=== PATIENT | female | born 1995 | race Caucasian/White ===

== ENCOUNTER 2024-01-04 11:00 | Inpatient (IN) | payer SELFPAY ==
[2024-01-04] VITALS (19 sets, daily range): BP systolic 107–131; BP diastolic 54–83; PULSE 64–110; RESP 15–18; TEMP 36.4–37.6; O2SAT 97–100; BMI 29.2
[2024-01-04] MEDS: LACTATED RINGERS 500 ML 999 ML IV ×2 (11:35→16:40)
[2024-01-04] MEDS: Lactated Ringers 1,000 ML 50 ML IV (11:35)
[2024-01-04 11:55] LABS: Absolute Neutrophil Count 9.2 X10^3/uL (2.0-7.7); Basophil# 0.05 X10^3/uL; Basophil% 0.4 % (0-1); Eosinophil# 0.02 X10^3/uL; Eosinophils% 0.2 % (0-5); Hematocrit 42.5 % (37-47); Hemoglobin 14.4 g/dL (12.0-15.0); Lymphocyte % 12.4 % (19-41); Mean Corp Hgb Conc 33.9 g/dL (32-36); Mean Corpuscular Hgb 30.7 pg (27.0-32.0); Mean Corpuscular Volume 90.6 fL (81-99); Mean Platelet Vol. 11.7 fl (6.2-12.0); Monocyte# 0.57 X10^3/uL; Monocyte% 5.1 % (0-10); NRBC Flagged by Analyzer 0 % (0-5); Neutrophil # 9.15 X10^3/uL (2.7-7.7); Neutrophil % 81.4 % (47-70); Platelet Count 158 K/mm3 (150-450); RBC Distribution Width CV 12.2 % (11.6-14.6); RBC Distribution Width SD 40.4 fl (35.1-43.9); Red Blood Count 4.69 M/mm3 (4.2-5.4); White Blood Count 11.3 K/mm3 (4.4-11.0)
[2024-01-04 12:30] LABS: Syphilis Antibodies Non-reactive
--- NOTE | 2024-01-04 12:34 | HP.PCM.OB_ITS ---
HPI - General General Date of Admission: 01/04/24 HPI Narrative JIM YIN, is a 28 F who presents at 40w4d in active labor. Present to office for visit and 5cm dilated with regular contractions. Maternal Data Information HA Calculator Estimated Delivery Date Method Current WG Current Estimate 12/31/23 Manual 40w 4d PFSH PFSH Home Medications ?Medication ?Instructions ?Recorded ?Last Taken ?Type famotidine 20 mg tablet (Acid 20 mg PO BID heartburn 01/04/24 01/03/24 22:00 History Controller) vits,calcium no.78-iron 1 tab PO DAILY 01/04/24 01/03/24 22:00 History fumarate-folic acid 29 mg-1 mg tablet (Prenatabs FA) Allergy/AdvReac Type Severity Reaction Status Date / Time No Known Allergies Allergy Verified 01/04/24 10:57 Social History Smoking Status: Never smoker History Elective abortions Hx Para 0 Spontaneous abortions Hx # Term Pregnancies Ectopic pregnancies Hx # Pregnancies Multiple births # of living children NST FHR Rate Baby A Baseline: 135 Variability:: Moderate Accelerations:: 15 x 15 Decelerations:: Late and Variable FHR Category:: Category II Uterine Activity:: Every 2-4 minutes, strong ROS Constitutional Constitutional: Reports systems reviewed and no addt'l complaints, except as documented; Denies headache(s) Eyes Eyes: Denies acute decrease in peripheral vision, blurry vision or change in vision ENT HEENT: Reports systems reviewed and no addt'l complaints, except as documented Cardiovascular Cardiovascular: Denies chest pain or dizziness Respiratory/Chest Respiratory/Chest: Denies cough, dyspnea, dyspnea on exertion, shortness of breath at rest or shortness of breath with exertion Gastrointestinal Gastrointestinal: Denies abdominal pain, diarrhea, nausea or vomiting Genitourinary Genitourinary: Denies abdominal discomfort Musculoskeletal Musculoskeletal: Denies limited range of motion Integumentary Integumentary: Reports systems reviewed and no addt'l complaints, except as documented Neurologic Neurologic: Reports systems reviewed and no addt'l complaints, except as documented Psychiatric Psychiatric: Reports systems reviewed and no addt'l complaints, except as documented Endocrine Endocrinology: Reports systems reviewed and no addt'l complaints, except as documented Hematologic/Lymphatic Hematologic/Lymphatic: Reports systems reviewed and no addt'l complaints, except as documented Allergic/Immunologic Allergic/Immunologic: Reports systems reviewed and no addt'l complaints, except as documented Vital Signs Vital Signs Vital Signs: 01/04/24 10:55 01/04/24 10:55 Pulse Rate 86 Blood Pressure 110/77 BP Systolic 110 BP Diastolic 77 Weight Weight: 170 lb Body Mass Index (BMI) 29.2 Physical Exam Const alert and oriented x3 General Appearance: cooperative Orientation / Consciousness: awake, oriented to person, oriented to place and oriented to time Exam Limitations: no limitations HEENT normocephalic Head and Scalp: normal to inspection, normocephalic and atraumatic Face and Sinus: normal facial exam Eyes General Eye: normal appearance of both eyes Neck full ROM Chest Chest: symmetrical chest wall rise Resp normal respiratory effort and normal air movement Auscultation: clear to auscultation bilaterally Cardio regular rate, regular rhythm, S1 normal heart sound, S2 normal heart sound, no murmurs, no rub, no gallops and no clicks GI normal to inspection, nondistended, normoactive bowel sounds and non-tender appearance of the vagina normal Narrative: 6/80%/-2, BBOW Bladder / Kidney Exam: no CVA tenderness Back/Spine normal ROM Extremity normal to inspection and full ROM Skin no rashes or lesions noted Neuro oriented x3, CN's II-XII intact bilaterally and moves all extremities Sensorium / Orientation: awake, alert and oriented to person Motor Exam: clonus absent Deep Tendon Reflexes: Rt Patellar (L4): 2+ and Lt Patellar (L4): 2+ Labs Labs Labs: Blood Type B POSITIVE Antibody Screen NEGATIVE Hct 42.5 % (37-47) Hgb 14.4 g/dL (12.0-15.0) Syphilis Total Ab Non-reactive RPR negative HIV negative HepC negative HBsAG negative GBS negative B positive Rubella immune GC/CT negative Assessment & Plan (1) 40 weeks gestation of : (2) Active labor at term: PLAN: Plan 1) Admit to labor and delivery 2) Routine labs 3) Continuous EFM 4) Pain management upon request 5) Augmentation if needed, will await for heart tracing to improve with resuscitative measures. 6) [facility] physician and notified of patient status, above assessment and plan of care.
[2024-01-04] MEDS: Ondansetron 4 MG/2 ML Vial IV (16:19)
--- NOTE | 2024-01-04 17:34 | PN.OBGYN_ITS ---
Subjective Subjective Coping well in bed with Nitrous. at bedside Objective Data Objective Data Vital Signs: Vital Signs Temp Pulse Resp BP Pulse Ox 98.1 F 80 16 131/75 H 100 01/04/24 17:02 01/04/24 17:01 01/04/24 17:02 01/04/24 17:01 01/04/24 17:02 Weight: 170 lb Body Mass Index (BMI) 29.2 Intake & Output: Intake and Output for Last 24 Hours 01/02/24 01/03/24 01/04/24 23:59 23:59 23:59 Intake Total 1237.5 / 1237.5 Balance 1237.5 / 1237.5 Lab / Micro Data 01/04/24 11:35 Labs: Laboratory Results - last 24 hr 01/04/24 11:35: WBC 11.3 H, RBC 4.69, Hgb 14.4, Hct 42.5, MCV 90.6, MCH 30.7, MCHC 33.9, RDW Std Deviation 40.4, RDW Coeff of [place] 12.2, Plt Count 158, MPV 11.7, Immature Gran % (Auto) 0.500, Neut % (Auto) 81.4 H, Lymph % (Auto) 12.4 L, [place] % (Auto) 5.1, Eos % (Auto) 0.2, Baso % (Auto) 0.4, Absolute Neuts (auto) 9.2 H, Absolute Lymphs (auto) 1.40, Nucleated RBC % 0, Syphilis Total Ab Non- reactive, Blood Type B POSITIVE, Antibody Screen NEGATIVE Physical Exam Narrative: complete dilation, +1. AROM clear fluid NST FHR Rate Baby A Baseline: 120 Variability:: Moderate Accelerations:: 15 x 15 Decelerations:: Late and Variable FHR Category:: Category II Uterine Activity:: Every 2 minutes, Strong Assessment & Plan (1) Active labor at term: (2) 40 weeks gestation of : PLAN: Plan 1) Nitrous for pain management 2) Start pushing efforts 3) Resuscitative measures for Category 2 FHT 4) [facility] physician and notified of patient status
[2024-01-04] MEDS: Oxytocin 15 Units/NS 250ml 15 UNITS/250 ML IV.SOLN 334 UNITS IV (18:36)
[2024-01-04] MEDS: Oxytocin 15 Units/NS 250ml 15 UNITS/250 ML IV.SOLN 83 UNITS IV (19:10)
--- NOTE | 2024-01-04 19:44 | EX.PCM.OBRPT ---
Maternal Data Information HA Calculator Estimated Delivery Date Method Current WG Current Estimate 12/31/23 Manual 40w 4d Vaginal Delivery Maternal Presentation Maternal Presentation: Active Labor Operative Information Date of Procedure: 01/04/24 Pre-Operative Diagnosis: Active Labor at term Post-Operative Diagnosis: , first degree perineal laceration Surgery / Procedure Performed: Spontaneous Vaginal Delivery Type of Anesthesia: None Estimated Blood Loss: 200ml Time of Delivery: 18:32 Findings Description of Procedure: Progressed to complete with urge to push. Unmedicated. of viable female over 1st degree perineal laceration. APGARS 8,9 respectively. Infant head delivered with body immediately forthcoming. Placed on maternal abdomen, strong cry. Mouth and nares suctioned for secretions. Pitocin started for active 3rd stage management. Cord doubly clamped and cut by FOB after pulsations ceased, delayed cord clamping. Placenta delivered intact via ríos, 3 vessel cord intact. Perineum inspected and revealed 1st degree perineal laceration. Repaired with 3.0 vicryl rapide and consented to no lidocaine. Fundus firm and hemostasis achieved. EBL 200ml. Mom and baby stable, planning to breastfeed. Family bonding well. notified of delivery. Presentation: Vertex and CARMELINA Amniotic Membrane Rupture Type: Artificial Amniotic Fluid Description: Clear Placental Delivery Description: Spontaneous Placenta Disposition: [facility] Cord Vessel Description: 3 Vessels Cord Entanglement: None Infant A Gender: Female (1 minute): 8 (5 minute): 9 Delayed Cord Clamping: Yes Post Vaginal Delivery Medications Given After Delivery: IV Pitocin Episiotomy Description: None Laceration: Perineal Extension/lac and 1st degree Complication Complications: None
[2024-01-05] VITALS (10 sets, daily range): BP systolic 101–114; BP diastolic 55–68; PULSE 71–92; RESP 16; TEMP 36.3–36.7; O2SAT 97–98
--- NOTE | 2024-01-05 09:00 | PN.OBGYN_ITS ---
Subjective Subjective Doing well. No complaints. Lochia mild. Pain managed. Objective Data Objective Data Vital Signs: Vital Signs Temp Pulse Resp BP Pulse Ox O2 Del Method 97.6 F L 92 16 101/55 L 100 Room Air 01/05/24 05:29 01/05/24 05:29 01/05/24 05:29 01/05/24 05:29 01/04/24 17:02 01/05/24 05:29 Oxygen Delivery Method Room Air Weight: 77.111 kg Body Mass Index (BMI) 29.2 Intake & Output: Intake and Output for Last 24 Hours 01/03/24 01/04/24 01/05/24 23:59 23:59 23:59 Intake Total 2130.10 / 2129.10 Output Total 200 / 200 600 / 600 Balance 1930. / 1929.10 -600 / -600 Lab / Micro Data 01/04/24 11:35 Labs: Laboratory Results - last 24 hr 01/04/24 11:35: WBC 11.3 H, RBC 4.69, Hgb 14.4, Hct 42.5, MCV 90.6, MCH 30.7, MCHC 33.9, RDW Std Deviation 40.4, RDW Coeff of [place] 12.2, Plt Count 158, MPV 11.7, Immature Gran % (Auto) 0.500, Neut % (Auto) 81.4 H, Lymph % (Auto) 12.4 L, [place] % (Auto) 5.1, Eos % (Auto) 0.2, Baso % (Auto) 0.4, Absolute Neuts (auto) 9.2 H, Absolute Lymphs (auto) 1.40, Nucleated RBC % 0, Syphilis Total Ab Non- reactive, Blood Type B POSITIVE, Antibody Screen NEGATIVE ROS Constitutional Constitutional: Denies fatigue, fever(s) or malaise Eyes Eyes: Denies change in vision ENT HEENT: Denies dizziness or headache(s) Cardiovascular Cardiovascular: Denies chest pain, dyspnea or lightheadedness Respiratory/Chest Respiratory/Chest: Denies cough or dyspnea Gastrointestinal Gastrointestinal: Denies change in bowel habits Genitourinary Genitourinary: Denies burning urination or genital lesions Integumentary Integumentary: Denies rash Neurologic Neurologic: Denies confusion, dizziness, headache(s), numbness or weakness Physical Exam Const alert and no apparent distress Narrative: Fundus firm, below umbilicus. Assessment & Plan (1) (spontaneous vaginal delivery): (2) Lactating mother: PLAN: Plan Routine care. Expect discharge tomorrow
[2024-01-06 03:20] VITALS: BP 112/67; PULSE 78; PULSE 82; O2SAT 97
[2024-01-06 03:33] VITALS: BP 112/67; PULSE 81; RESP 16; TEMP 36.6; O2SAT 97
--- NOTE | 2024-01-06 06:28 | PCM.PN.OB ---
Subjective Subjective Doing well. Pain managed. Light lochia. Breast feeding. Cluster feeding last night. Objective Data Objective Data Vital Signs: Vital Signs Temp Pulse Resp BP Pulse Ox O2 Del Method 97.9 F 81 16 112/67 97 Room Air 01/06/24 03:33 01/06/24 03:33 01/06/24 03:33 01/06/24 03:33 01/06/24 03:33 01/06/24 03:33 Oxygen Delivery Method Room Air Weight: 77.111 kg Body Mass Index (BMI) 29.2 Intake & Output: Intake and Output for Last 24 Hours 01/04/24 01/05/24 01/06/24 23:59 23:59 23:59 Intake Total 2129.2129. Output Total 200 / 200 600 / 600 Balance 1929.10 -600 / -600 Lab / Micro Data 01/04/24 11:35 ROS Constitutional Constitutional: Denies fatigue, fever(s) or malaise Eyes Eyes: Denies change in vision ENT HEENT: Denies dizziness or headache(s) Cardiovascular Cardiovascular: Denies chest pain, dyspnea or lightheadedness Respiratory/Chest Respiratory/Chest: Denies cough or dyspnea Gastrointestinal Gastrointestinal: Denies change in bowel habits Genitourinary Genitourinary: Denies burning urination or genital lesions Integumentary Integumentary: Denies rash Neurologic Neurologic: Denies confusion, dizziness, headache(s), numbness or weakness Physical Exam Const alert and no apparent distress Narrative: Fundus firm, below umbilicus. Assessment & Plan (1) (spontaneous vaginal delivery): (2) Lactating mother: PLAN: Plan Routine care. Discharge today
--- NOTE | 2024-01-06 06:32 | PCM.DC.SUM ---
Providers Date of Admission: 01/04/24 Date of Discharge: 01/06/24 Primary Care Physician: Mariluz Primary Care Phys Reason For Visit: LABOR AND DELIVERY Diagnosis Discharge Diagnosis (1) (spontaneous vaginal delivery): Status: Acute Code(s): O80 - Encounter for full-term uncomplicated delivery (2) Lactating mother: Status: Acute Code(s): Z39.1 - Encounter for care and examination of lactating mother Plan Routine care. Discharge today Medications at Discharge Home Medications famotidine 20 mg tablet (Acid Controller) 20 mg PO BID heartburn 01/04/24 vits,calcium no.78-iron fumarate-folic acid 29 mg-1 mg tablet (Prenatabs FA) 1 tab PO DAILY 01/04/24 Hospital Course Operations None Procedures None Summary of Care Provided Minutes Spent on Discharge: 22 Hospital Course: Admitted in active labor. Uncomplicated vaginal delivery. No problems . Breast feeding Physical Exam Const alert and no apparent distress Narrative: Fundus firm, below umbilicus. Weight / BMI Weight Weight: 77.111 kg Body Mass Index (BMI) 29.2 ABG / Lab / Microbiology Data 01/04/24 11:35 D/C Instructions May resume sexual activity in: 6 weeks Please Follow Up With: Massiel Dennison MD When: Follow up with our office in 1-2 and 6 weeks or as needed. [phone] Meaningful Use Info Meaningful Use Meaningful Use Diagnoses (Choose all that apply): None applicable Ischemic Stroke Statin Dosing Therapy Reference: STATIN DOSE THERAPY REFERENCE: * Patients > 75 years receive moderate or high dose statin therapy. * Patients 75 years or YOUNGER should receive HIGH intensity statin dose unless contraindicated. You will be required to document reason for non-treatment if statin daily dose does not meet guidelines. HIGH DOSE STATIN THERAPY DAILY Atorvastatin > than or = to 40 mg Rosuvastatin > than or = to 20 mg Amlodipine + Atorvastatin > than or = to 2.5/40 mg Ezetimibe + Simvastatin 10/80 mg Simvastatin 80mg Discharge Plan Admission Admit Date/Time: 01/04/24 11:00 Primary Reason for Your Visit: labor Attending Provider: Michelle Dorado Primary Care Provider: Mariluz Ross Primary Discharge Orders/Prescriptions Prescriptions: Continued famotidine [Acid Controller] 20 mg tablet 20 mg PO BID Prenatabs FA 29-1 mg tablet 1 tab PO DAILY Referrals / Follow Up: Care PhysicianNo Primary [Primary Care Provider] - Disposition Disposition (needs filled in before D/C Order can be placed): Home, Self Care
[2024-01-06 07:59] VITALS: BP 105/68; PULSE 77
[2024-01-06 08:00] VITALS: BP 105/68; PULSE 77; RESP 16; TEMP 36.6
== END 2024-01-06 11:21 | disposition home or self-care (01) | DRG 807 ==
PROVIDERS: Advanced Practice Midwife; Admitting Provider Advanced Practice Midwife; Visit Provider Advanced Practice Midwife
DX: O48.0 Post-term pregnancy (principal); Z37.0 Single live birth; O70.0 First degree perineal laceration during delivery; Z3A.40 40 weeks gestation of pregnancy
CPT/HCPCS: 59025; 59050; 85025; 86780; 86850; 86900; 86901; 99221; J7120; G0378; J2405